=== PATIENT | male | born 1965 | race Hispanic/Latino ===

== ENCOUNTER 2018-10-26 11:12 | Emergency (ER) | payer BC ==
[2018-10-26] MEDS ORDERED: NACL 0.9% IR ONE (11:38)
[2018-10-26] MEDS ORDERED: BOOSTRIX IM ONE (11:38)
[2018-10-26] MEDS ORDERED: KEFLEX PO ONE (11:38)
[2018-10-26] MEDS ORDERED: XYLOCAINE 1%/ EPI 1:100,000 INFILTRATI ONE (11:38)
[2018-10-26] MEDS ORDERED: NORCO 5/325 PO ONE (11:38)
--- NOTE | 2018-10-26 11:38 | Emergency Department Report ---
ED Laceration HPI - HPI Chief Complaint: Laceration/Recheck/Suture Stated Complaint: HEMORRHAGE Time Seen by Provider: 10/26/18 11:38 Location: Lower Extremity Severity: moderate Tetanus Status: Not up to Date Laceration Symptoms: No Foreign Body Sensation, No Numbness, No Weakness, No Pain Other History: Patient is a pleasant 53-year-old comes to the ER after accidentally stabbing himself in the eye with a pocket knife while attempting to cut a hangnail. He states that the knife slipped and then went through his pants into his quadricep. He had quite a bit of bleeding, this occurred at work so they called 911. On arrival to the ER the bandage placed by EMS was removed and a pressure dressing was applied. A minimal amount of bleeding occured in ER. Report is that the wound. blood was bright red. No tachy. No hypotension. Pt has no pain. Patient denies any other injury. He was on no medicines. No blood thinners. Family is at bedside. ED Review of Systems ROS: Stated complaint: HEMORRHAGE Other details as noted in HPI Comment: All other systems reviewed and negative ED Past Medical Hx - Past Medical History Previous Medical History?: No Hx Hypertension: No Hx CVA: No Hx Heart Attack/AMI: No Hx Congestive Heart Failure: No Hx Diabetes: No Hx Deep Vein Thrombosis: No Hx Pulmonary Embolism: No Hx GERD: No Hx Liver Disease: No Hx Renal Disease: No Hx of Cancer: No Hx Sickle Cell Disease: No Hx Arthritis: No Hx Headaches / Migraines: No Hx Seizures: No Hx Kidney Stones: No Hx Psychiatric Treatment: No Hx Asthma: No Hx COPD: No Hx Tuberculosis: No Hx Dementia: No Hx HIV: No Additional medical history: pt states for years he has had intermit. tingling of the left foot- no known etiology. non limiting. no diagnosis/no DM - Surgical History Past Surgical History?: No Hx Coronary Stent: No Hx Open Heart Surgery: No Hx Pacemaker: No Hx Internal Defibrillator: No Hx Cholecystectomy: No Hx Appendectomy: No Hx Breast Surgery: No - Family History Family history: no significant - Social History Smoking Status: Never Smoker Substance Use Type: None - Medications Home Medications: Home Medications Medication Instructions Recorded Confirmed Last Taken Type cephALEXin [Keflex] 500 mg PO Q12HR #20 cap 10/26/18 Unknown Rx traMADol [Ultram] 50 mg PO Q6HR PRN #12 tablet 10/26/18 Unknown Rx Laceration Physical Exam - Exam General: Vital signs noted. No distress. Alert and acting appropriately. Laceration Location: Lower Extremity Laceration Exam: Yes Normal Distal CMS, No Foreign Body, No Exposed Tendon, Vessel, or Nerve, No Tendon Injury ED Course Vital Signs 10/26/18 11:16 Temperature 98.6 F Pulse Rate 68 Respiratory 14 Rate Blood Pressure 144/96 [Right] O2 Sat by Pulse 100 Oximetry - Reevaluation(s) Reevaluation #1: 10/26/18 ON NO HOME MEDS NO BLOOD THINNERS NO ASA/NSAIDS Reevaluation #2: 10/26/18 15:07 HR 53, SBP 140 NO COMPLAINTS NO PAIN PULSES UNCHANGED COMPARTMENT SOFT AMBULATED TO REST ROOM - Laceration /Wound Repair L LEG Wound Location: lower extremity Wound Length (cm): 4 Wound's Depth, Shape: into muscle, contused tissue Wound Explored: clean Irrigated w/ Saline (ccs): 100 Betadine Prep?: Yes Anesthesia: Lidocaine w/ Epi Volume Anesthetic (ccs): 5 Wound Debrided: minimal Wound Repaired With: sutures Suture Size/Type: 3:0 Number of Sutures: 2 Layer Closure?: No Sterile Dressing Applied?: Yes Progress: TOLERATED WELL ED Medical Decision Making - Lab Data Result diagrams: 10/26/18 13:35 10/26/18 13:35 - Medical Decision Making Labs 10/26/18 10/26/18 13:35 13:35 WBC 9.0 RBC 4.89 Hgb 15.3 H Hct 43.2 MCV 88 MCH 31 MCHC 35 H RDW 12.7 L Plt Count 218 Sodium 139 Potassium 4.3 Chloride 101.8 Carbon Dioxide 23 Anion Gap 19 BUN 14 Creatinine 0.8 Estimated GFR > 60 BUN/Creatinine Ratio 18 Glucose 102 H Calcium 8.7 Vital Signs 10/26/18 11:16 Temperature 98.6 F Pulse Rate 68 Respiratory 14 Rate Blood Pressure 144/96 [Right] O2 Sat by Pulse 100 Oximetry Wound assessed and pressure dressing arrived on arrival to ER. Bright red blood noted. The bleeding was easily controlled with pressure. DP plus 2 bilateral. Full ROM leg. No pain. All upper and lower leg compartments soft. Small hematoma noted under dressing.The hematoma was monitored during the pts ER stay with no expanding. No change in BP. Pulses remained plus 2 bilerat. Pt had no pain. All compartments remained soft. Tdap given LR x 1 L here in ER Keflex PO given depth of wound- reported to be 1 inch. Wound cleaned and repaired. Silver nitrate used. Hemastasis was obtained with no expanding hematoma. 2 sutures were used to approx the edge of the wound but allow for bleeding to occur if it should start to bleed. Pt monitored in ER for over 4.5 hours with no change in assessment or VS. Labs noted. Hgb noted. CK noted Pt and educated on plan of care. They are reliable for follow up and able to assess for changes that would require evaluation. They are reliable for follow up. Dc home with dc plan of care. Crutch care provided. VSS. - Differential Diagnosis LAC Critical care attestation.: If time is entered above; I have spent that time in minutes in the direct care of this critically ill patient, excluding procedure time. ED Disposition Clinical Impression: Stab wound, Laceration Disposition: DC-01 TO HOME OR SELFCARE Is pt being admited?: No Does the pt Need Aspirin: No Condition: Stable Instructions: Suture Care (ED), Laceration (ED) Additional Instructions: ACTIVITY LIMITED UNTIL WEDNESDAY USE CRUTCHES KEEP WOUND CLEAN WE DISCUSSED AVOID STRAINING MONITOR OF THE PULSES/PAIN/SWELLING ETC THAT WE DISCUSSED MEDS ORDERED TODAY SUTURES OUT WE DISCUSSED IN ABOUT 10 DAYS FOLLOW UP WITH PCP IF ANY PROBLEMS DEVELOP [facility] IF BLEEDING OCCURS PAIN OUT OF PROPORTION TO SIZE OF WOUND AND A HARD QUAD IS REASON FOR 911 TO TRAUMA CENTER Prescriptions: cephALEXin [Keflex] 500 mg PO Q12HR #20 cap traMADol [Ultram] 50 mg PO Q6HR PRN #12 tablet PRN Reason: Pain Referrals: VENECIA TRACY MD [Staff Physician] - 3-5 Days Forms: Work/School Release Form(ED) Time of Disposition: 15:02
[2018-10-26] MEDS ORDERED: SILVER NITRATE TP ONE (12:47)
[2018-10-26] MEDS ORDERED: LACTATED RINGERS 1,000 ML IV ONE (13:13)
[2018-10-26 13:45] LABS: Hematocrit 43.2 % (35.5-45.6); Hemoglobin 15.3 gm/dl (11.8-15.2); Mean Corpuscular HGB Conc 35 % (32-34); Mean Corpuscular Volume 88 fl (84-94); Platelet Count 218 K/mm3 (140-440); Red Blood Count 4.89 M/mm3 (3.65-5.03); Red Cell Distribution Width 12.7 % (13.2-15.2)
[2018-10-26 14:27] LABS: BUN/Creatinine Ratio 18; Blood Urea Nitrogen 14 mg/dL (9-20); Calcium 8.7 mg/dL (8.4-10.2); Hemolysis Index 3
[2018-10-26] MEDS ORDERED: NORCO 10/325 PO ONE (15:02)
[2018-10-26] MEDS ORDERED: ZOFRAN ODT PO ONE (15:02)
[2018-10-26 15:39] VITALS: BP 136/91
== END 2018-10-26 15:38 | disposition home or self-care (01) ==
LOC: ED 11:12
DX: S81.812A Laceration without foreign body, left lower leg, initial encounter (principal); Z79.899 Other long term (current) drug therapy; W26.0XXA Contact with knife, initial encounter; Y93.89 Activity, other specified; Y92.89 Other specified places as the place of occurrence of the external cause; Y99.8 Other external cause status
CPT/HCPCS: 12002; 36415; 80048; 82550; 85027; 90471; 90715; 99283; J7120; Q0162